=== PATIENT | female | born 1980 | race Caucasian/White ===

== ENCOUNTER → 2019-04-04 | Outpatient (CLI) | payer BC ==
--- NOTE | 2019-04-04 09:14 | US ---
EXAMINATION TYPE: US abdomen complete DATE OF EXAM: 04/04/2019 COMPARISON: CT 2009 CLINICAL HISTORY: Abnormal Liver Function Studies R94.5. EXAM MEASUREMENTS: Liver Length: 18.6 cm Gallbladder Wall: 0.1 cm CBD: 0.3 cm Spleen: 9.9 cm Right Kidney: 13.0 x 6.7 x 6.2 cm Left Kidney: 11.1 x 5.3 x 5.1 cm Pancreas: Obscured by bowel gas Liver: Coarsened and hyperechoic heterogenous echotexture of the hepatic parenchyma, which most commo nly corresponds to hepatic steatosis and limits evaluation for underlying hepatic masses Gallbladder: No stones seen Evidence for sonographic Mariscal's sign: No CBD: wnl Spleen: wnl Right Kidney: No hydronephrosis or masses seen Left Kidney: No hydronephrosis or masses seen Upper IVC: wnl Abd Aorta: wnl The intrahepatic portion of the IVC and proximal abdominal aorta are within normal limits. There is no evidence of cholelithiasis. Common bile duct is unremarkable. The pancreas is obscured by overly ing bowel gas. The spleen is unremarkable. Kidneys are symmetric and free of hydronephrosis. No re nal lesions are seen. IMPRESSION: 1. Heterogenous hyperechoic hepatic echotexture relating to mild to moderate hepatic steatosis sonogr aphically. 2. Obscuration of the pancreas by overlying bowel gas.
== END | disposition home or self-care (01) ==
LOC: RADUSWWP 07:53
PROVIDERS: ATTEND Family Medicine
DX: R93.2 Abnormal findings on diagnostic imaging of liver and biliary tract (principal); E78.2 Mixed hyperlipidemia
CPT/HCPCS: 76700

== ENCOUNTER 2021-05-15 05:34 | Observation (INO) | payer BC ==
[2021-05-15] MEDS ORDERED: SODIUM CHLORIDE 0.9% 1,000 ML IV STA (05:57)
[2021-05-15] MEDS ORDERED: KETOROLAC 15 MG/ML 1 ML VIAL IVP STA (05:57)
[2021-05-15] MEDS ORDERED: MORPHINE SULFATE 4 MG/ML SYRINGE IV STA (05:57)
--- NOTE | 2021-05-15 05:57 | ED ---
Abdominal Pain HPI <Ja Pearl - Last Filed: 05/15/21 08:19> - General Source: patient, RN notes reviewed, old records reviewed Mode of arrival: ambulatory Limitations: no limitations - History of Present Illness MD Complaint: abdominal pain, flank pain -: week(s) Location: RUQ, R flank Radiation: epigastric Severity: moderate Severity scale (1-10): 7 Quality: stabbing Consistency: constant Improves With: nothing Worsens With: nothing Associated Symptoms: nausea, vomiting <Ja Flores - Last Filed: 05/16/21 06:29> - General Chief Complaint: Abdominal Pain Stated Complaint: R Flank Pain Time Seen by Provider: 05/15/21 05:46 - History of Present Illness Initial Comments: This is a 32-year-old female DF for evaluation of abdominal pain epigastric abdominal pain right upper quadrant bowel pain abdominal pain radiates to right upper shoulder back, right-sided abdominal pain with nausea and vomiting. Pain is persistent throughout ER stay. Patient sent her gallbladder history she is concern for gallbladder. She has had this pain before but state is worsening has been in the past. No fevers mild nausea no vomiting. (Ja Flores) - Related Data Home Medications Medication Instructions Recorded Confirmed Insulin Degludec [Tresiba] 10 units SQ HS 04/11/19 05/15/21 gemfibroziL [Lopid] 600 mg PO BID 04/11/19 05/15/21 glyBURIDE [Diabeta] 10 mg PO AC-BRKFST 04/11/19 05/15/21 metFORMIN HCL [metFORMIN HCL ER] 1,000 mg PO HS 05/15/21 05/15/21 Allergies Allergy/AdvReac Type Severity Reaction Status Date / Time No Known Allergies Allergy Verified 05/15/21 09:27 Review of Systems ROS Other: All systems not noted in ROS Statement are negative. <Ja Pearl - Last Filed: 05/15/21 08:19> ROS Other: All systems not noted in ROS Statement are negative. <Ja Flores - Last Filed: 05/16/21 06:29> ROS Statement: Those systems with pertinent positive or pertinent negative responses have been documented in the HPI. Past Medical History Past Medical History: No Reported History History of Any Multi-Drug Resistant Organisms: None Reported Past Surgical History: Tubal Ligation Past Anesthesia/Blood Transfusion Reactions: No Reported Reaction Past Psychological History: No Psychological Hx Reported Smoking Status: Current every day smoker Past Alcohol Use History: Rare Past Drug Use History: None Reported <Ja Flores - Last Filed: 05/16/21 06:29> General Exam Limitations: no limitations General appearance: alert, in no apparent distress Head exam: Present: atraumatic, normocephalic, normal inspection Eye exam: Present: normal appearance, PERRL, EOMI. Absent: scleral icterus, conjunctival injection, periorbital swelling ENT exam: Present: normal exam, mucous membranes moist Neck exam: Present: normal inspection. Absent: tenderness, meningismus, lymphadenopathy Respiratory exam: Present: normal lung sounds bilaterally. Absent: respiratory distress, wheezes, rales, rhonchi, stridor Cardiovascular Exam: Present: regular rate, normal rhythm, tachycardia, normal heart sounds. Absent: systolic murmur, diastolic murmur, rubs, gallop, clicks GI/Abdominal exam: Present: soft, normal bowel sounds. Absent: distended, tenderness, guarding, rebound, rigid Extremities exam: Present: normal inspection, full ROM, normal capillary refill. Absent: tenderness, pedal edema, joint swelling, calf tenderness Back exam: Present: normal inspection Neurological exam: Present: alert, oriented X3, CN II-XII intact Psychiatric exam: Present: normal affect, normal mood Skin exam: Present: warm, dry, intact, normal color. Absent: rash <Ja Flores - Last Filed: 05/16/21 06:29> Course <Ja Flores - Last Filed: 05/16/21 06:29> Vital Signs 05/15/21 05/15/21 05/15/21 05:45 07:24 09:20 Temperature 97.9 F 97.9 F Pulse Rate 109 H 92 Pulse Rate [ 81 Pulse Oximetery ] Respiratory 19 18 18 Rate Blood Pressure 134/85 114/85 Blood Pressure 125/78 [Right Arm] O2 Sat by Pulse 98 97 96 Oximetry - Reevaluation(s) Reevaluation #1: Medical record is reviewed Patient symptoms are improved here in the ER Patient is in no acute distress Patient informed results and questions answered (Ja Flores) Medical Decision Making - Lab Data Result diagrams: 05/15/21 06:06 05/15/21 06:06 <Ja Pearl - Last Filed: 05/15/21 08:19> - Lab Data Result diagrams: 05/15/21 06:06 05/15/21 06:06 - Radiology Data Radiology results: report reviewed (CT abdomen and pelvis is negative for significant acute disease possible kidney stone), image reviewed <Ja Flores - Last Filed: 05/16/21 06:29> - Medical Decision Making Ultrasound did not show any gallstones or fluid around the gallbladder. However on reexamination of the patient patient was strapping machine tender in the right upper quadrant she stated the pain radiated to her back and up into her shoulder. Patient still was uncomfortable at this time. I spoke with the [facility] hospitalist and admitted the patient and I consulted Dr. granger (Ja Pearl) - Lab Data Lab Results 05/15/21 05/15/21 05/15/21 Range/Units 05:50 06:06 06:06 WBC 15.2 H (3.8-10.6) k/uL RBC 4.81 (3.80-5.40) m/uL Hgb 13.4 (11.4-16.0) gm/dL Hct 39.6 (34.0-46.0) % MCV 82.5 (80.0-100.0) fL MCH 27.8 (25.0-35.0) pg MCHC 33.7 (31.0-37.0) g/dL RDW 13.7 (11.5-15.5) % Plt Count 317 (150-450) k/uL MPV 7.2 Neutrophils % 72 % Lymphocytes % 20 % Monocytes % 4 % Eosinophils % 2 % Basophils % 1 % Neutrophils # 11.0 H (1.3-7.7) k/uL Lymphocytes # 3.1 (1.0-4.8) k/uL Monocytes # 0.7 (0-1.0) k/uL Eosinophils # 0.3 (0-0.7) k/uL Basophils # 0.1 (0-0.2) k/uL Sodium 136 L (137-145) mmol/L Potassium 4.4 (3.5-5.1) mmol/L Chloride 105 (98-107) mmol/L Carbon Dioxide 22 (22-30) mmol/L Anion Gap 9 mmol/L BUN 7 (7-17) mg/dL Creatinine 0.44 L (0.52-1.04) mg/dL Est GFR (CKD-EPI)AfAm >90 (>60 ml/min/1.73 sqM) Est GFR (CKD-EPI)NonAf >90 (>60 ml/min/1.73 sqM) Glucose 280 H (74-99) mg/dL POC Glucose (mg/dL) (75-99) mg/dL POC Glu Microfilmer ID Calcium 9.8 (8.4-10.2) mg/dL Total Bilirubin 0.4 (0.2-1.3) mg/dL AST 77 H (14-36) U/L ALT 68 H (4-34) U/L Alkaline Phosphatase 101 (38-126) U/L Total Protein 7.5 (6.3-8.2) g/dL Albumin 4.6 (3.5-5.0) g/dL Amylase 67 (30-110) U/L Lipase 248 (23-300) U/L Urine Color Light Yellow Urine Appearance Clear (Clear) Urine pH 6.5 (5.0-8.0) Ur Specific [place] 1.005 (1.001-1.035) Urine Protein Negative (Negative) Urine Glucose (UA) 4+ H (Negative) Urine Ketones Negative (Negative) Urine Blood Negative (Negative) Urine Nitrite Negative (Negative) Urine Bilirubin Negative (Negative) Urine Urobilinogen <2.0 (<2.0) mg/dL Ur Leukocyte Esterase Small H (Negative) Urine RBC 2 (0-5) /hpf Urine WBC 5 (0-5) /hpf Ur Squamous Epith Cells 5 H (0-4) /hpf Urine Bacteria Rare H (None) /hpf 05/15/21 Range/Units 08:07 WBC (3.8-10.6) k/uL RBC (3.80-5.40) m/uL Hgb (11.4-16.0) gm/dL Hct (34.0-46.0) % MCV (80.0-100.0) fL MCH (25.0-35.0) pg MCHC (31.0-37.0) g/dL RDW (11.5-15.5) % Plt Count (150-450) k/uL MPV Neutrophils % % Lymphocytes % % Monocytes % % Eosinophils % % Basophils % % Neutrophils # (1.3-7.7) k/uL Lymphocytes # (1.0-4.8) k/uL Monocytes # (0-1.0) k/uL Eosinophils # (0-0.7) k/uL Basophils # (0-0.2) k/uL Sodium (137-145) mmol/L Potassium (3.5-5.1) mmol/L Chloride (98-107) mmol/L Carbon Dioxide (22-30) mmol/L Anion Gap mmol/L BUN (7-17) mg/dL Creatinine (0.52-1.04) mg/dL Est GFR (CKD-EPI)AfAm (>60 ml/min/1.73 sqM) Est GFR (CKD-EPI)NonAf (>60 ml/min/1.73 sqM) Glucose (74-99) mg/dL POC Glucose (mg/dL) 211 H (75-99) mg/dL POC Glu Microfilmer ID Lisa Donahue Calcium (8.4-10.2) mg/dL Total Bilirubin (0.2-1.3) mg/dL AST (14-36) U/L ALT (4-34) U/L Alkaline Phosphatase (38-126) U/L Total Protein (6.3-8.2) g/dL Albumin (3.5-5.0) g/dL Amylase (30-110) U/L Lipase (23-300) U/L Urine Color Urine Appearance (Clear) Urine pH (5.0-8.0) Ur Specific [place] (1.001-1.035) Urine Protein (Negative) Urine Glucose (UA) (Negative) Urine Ketones (Negative) Urine Blood (Negative) Urine Nitrite (Negative) Urine Bilirubin (Negative) Urine Urobilinogen (<2.0) mg/dL Ur Leukocyte Esterase (Negative) Urine RBC (0-5) /hpf Urine WBC (0-5) /hpf Ur Squamous Epith Cells (0-4) /hpf Urine Bacteria (None) /hpf Disposition Time of Disposition: 08:21 <Ja Pearl - Last Filed: 05/15/21 08:19> Is patient prescribed a controlled substance at d/c from ED?: No <Ja Flores - Last Filed: 05/16/21 06:29> Clinical Impression: Right upper quadrant abdominal pain, Abdominal pain Disposition: ADMITTED IP TO THIS HOSP Condition: Good
[2021-05-15 06:26] LABS: Basophils # (A) 0.1 k/uL (0-0.2); Basophils % (A) 1 %; Eosinophils # (A) 0.3 k/uL (0-0.7); Eosinophils % (A) 2 %; HCT 39.6 % (34.0-46.0); HGB 13.4 gm/dL (11.4-16.0); Lymphocytes # (A) 3.1 k/uL (1.0-4.8); Lymphocytes % (A) 20 %; MCH 27.8 pg (25.0-35.0); MCHC 33.7 g/dL (31.0-37.0); MCV 82.5 fL (80.0-100.0); Mean Platelet Volume 7.2; Monocytes # (A) 0.7 k/uL (0-1.0); Monocytes % (A) 4 %; Neutrophils % (A) 72 %; Platelet Count 317 k/uL (150-450); RBC 4.81 m/uL (3.80-5.40); RDW 13.7 % (11.5-15.5); WBC 15.2 k/uL (3.8-10.6)
[2021-05-15 06:29] LABS: Appearance,Urine Clear (Clear); Bacteria,Urine Rare /hpf; Bilirubin,Urine Negative (Negative); Blood,Urine Negative (Negative); Color,Urine Light Yellow; Glucose,Urine (UA) 4+ (Negative); Ketones,Urine Negative (Negative); Leukocyte Esterase,Urine Small (Negative); Nitrite,Urine Negative (Negative); PH, Urine 6.5 (5.0-8.0); Protein,Urine Negative (Negative); RBC,Urine 2 /hpf (0-5); Specific Gravity,Urine 1.005 (1.001-1.035); Squamous Epithelial Cell,Urine 5 /hpf (0-4); Urobilinogen,Urine <2.0 mg/dL (<2.0); WBC,Urine 5 /hpf (0-5)
[2021-05-15 06:38] LABS: ALT 68 U/L (4-34); AST 77 U/L (14-36); African American GFR (CKD) >90 (>60 ml/min/1.73 sqM); Albumin 4.6 g/dL (3.5-5.0); Alkaline Phosphatase 101 U/L (38-126); Amylase 67 U/L (30-110); Anion Gap 9 mmol/L; Blood Urea Nitrogen 7 mg/dL (7-17); Calcium 9.8 mg/dL (8.4-10.2); Carbon Dioxide 22 mmol/L (22-30); Chloride 105 mmol/L (98-107); Glucose 280 mg/dL (74-99); Lipase 248 U/L (23-300); Non-African American GFR(CKD) >90 (>60 ml/min/1.73 sqM); Potassium 4.4 mmol/L (3.5-5.1); Sodium 136 mmol/L (137-145); Total Bilirubin 0.4 mg/dL (0.2-1.3); Total Protein 7.5 g/dL (6.3-8.2)
--- NOTE | 2021-05-15 06:48 | CT ---
EXAMINATION TYPE: CT abdomen pelvis wo con DATE OF EXAM: 05/15/2021 COMPARISON: None HISTORY: Rt flank pain, RUQ pain CT DLP: 751.7 mGycm Automated exposure control for dose reduction was used. Images obtained from the diaphragm to the floor the pelvis without contrast. Lung bases show mild subsegmental atelectasis in the lingula left upper lobe. Heart size is normal. T here is no pericardial effusion. There is no pleural effusion. Liver spleen stomach pancreas gallbladder appear intact. The bile ducts are not dilated. There is no adrenal mass. Kidneys have normal size. There is right side mild hydronephrosis. There ar e small calculi in the lower pole right kidney measuring up to 3 mm. There is slight fullness of the proximal right ureter. I see no ureteral calculus. Bladder distends smoothly. Uterus is tilted to the right side. There is no inguinal hernia. There is no free fluid in the pelvis. Appendix is not seen. There is no sign of thickened appendix. The lumbar vertebra have normal alignment. There is no compression fracture. Posterior elements are i ntact. Facet joints are intact. The bony pelvis is intact. Hip joints appear normal. There is no hip dysplasia. IMPRESSION: Multiple small right-sided renal calculi. Right kidney larger than the left. There is some fullness o f the right renal pelvis and proximal right ureter but no calculus seen. This could relate to nonopaq ue stone or recently passed stone. Appendix not seen. Mild atelectasis and infiltrate in the lingula left upper lobe.
[2021-05-15] MEDS ORDERED: HYDROmorphone 1 MG/ML 1 ML SYRINGE IVP STA (06:53)
--- NOTE | 2021-05-15 07:48 | US ---
EXAMINATION TYPE: US gallbladder DATE OF EXAM: 05/15/2021 COMPARISON: 04/04/2019 CLINICAL HISTORY: pain. Right flank pain EXAM MEASUREMENTS: Liver Length: 20.3 cm Gallbladder Wall: 0.2 cm CBD: 0.4 cm Right Kidney: 13.6 x 5.4 x 6.4 cm *technical limitations due to patient's body habitus and large amount of overlying bowel content Pancreas: Tail obscured by overlying bowel gas Liver: enlarged, attenuating, unable to penetrate Gallbladder: no evidence of stones Evidence for sonographic Mariscal's sign: no CBD: wnl Right Kidney: enlarged with mild dilated collecting systemm Suggestive of mild pelvicaliectasis. No right renal calculi are seen. IMPRESSION: 1. The study is limited due to patient's large body habitus and overlying bowel gas. 2. Hepatomegaly and hepatic steatosis. The liver is not well visualized due to difficulty in penetrat ion. 3. No gallstones, sludge, or pericholecystic fluid. No gallbladder wall thickening. 4. The right kidney is enlarged. Mild pelvicaliectasis.
[2021-05-15] MEDS ORDERED: ONDANSETRON 4 MG/2 ML VIAL IVP STA (08:02)
[2021-05-15 08:09] LABS: Glucose,Whole Blood 211 mg/dL (75-99)
[2021-05-15] MEDS ORDERED: SODIUM CHLORIDE 0.9% 1,000 ML IV ONE (08:22)
[2021-05-15] MEDS: KETOROLAC 15 MG/ML 1 ML VIAL IVP SCH ×3 (12:06→23:57)
[2021-05-15 12:48] LABS: Glucose,Whole Blood 135 mg/dL (75-99)
[2021-05-15] MEDS: INSULIN ASPART (NovoLOG) 100 UNIT/ML VIAL SQ SCH ×3 (13:01→20:34)
--- NOTE | 2021-05-15 16:42 | P.GSCN ---
History of Present Illness Consult date: 05/15/21 Reason for Consult: Right-sided abdominal pain History of present illness: 40-year-old female came to the hospital complaining of pain. Pain was present last Wednesday but slowly increased in severity. She points to the lateral aspect of the right costal region. Says the pain does seem to radiate from the front to the back and also to the shoulder. Minimal nausea, no vomiting. Normal appetite. Normal bowel habits. Denies fevers or chills. No urinary symptoms. She had a CAT scan which showed mild enlargement of the right kidney along with mild proximal ureteral dilation without calcified stones in the ureter however patient does have stones in the right kidney. Gallbladder itself on that study looks fairly normal. Her liver is somewhat enlarged. Her transaminases are somewhat elevated. Ultrasound of the gallbladder appeared normal. Review of Systems The patient denies any acute changes in vision or hearing, no dysphagia or odynophagia, no chest pain or shortness of breath, no dysuria or hematuria, no headache, no runny nose, no rectal bleeding or melena, no unexplained weight loss Past Medical History Past Medical History: Diabetes Mellitus, Hyperlipidemia History of Any Multi-Drug Resistant Organisms: None Reported Past Surgical History: Tubal Ligation Past Anesthesia/Blood Transfusion Reactions: No Reported Reaction Past Psychological History: No Psychological Hx Reported Smoking Status: Current every day smoker Past Alcohol Use History: Rare Past Drug Use History: None Reported - Past Family History Mother Family Medical History: Diabetes Mellitus, Hyperlipidemia Medications and Allergies Home Medications Medication Instructions Recorded Confirmed Type Insulin Degludec [Tresiba] 10 units SQ HS 04/11/19 05/15/21 History gemfibroziL [Lopid] 600 mg PO BID 04/11/19 05/15/21 History glyBURIDE [Diabeta] 10 mg PO AC-BRKFST 04/11/19 05/15/21 History metFORMIN HCL [metFORMIN HCL ER] 1,000 mg PO HS 05/15/21 05/15/21 History Allergies Allergy/AdvReac Type Severity Reaction Status Date / Time No Known Allergies Allergy Verified 05/15/21 09:27 Surgical - Exam Vital Signs Temp Pulse Resp BP Pulse Ox 97.9 F 109 H 19 134/85 98 05/15/21 05:45 05/15/21 05:45 05/15/21 05:45 05/15/21 05:45 05/15/21 05:45 Physical exam: General: Well-developed, well-nourished HEENT: Normocephalic, sclerae nonicteric Abdomen: Right lateral upper quadrant tenderness, right CVA tenderness, nondistended Extremities: No edema Neuro: Alert and oriented Results - Labs 05/15/21 06:06 05/15/21 06:06 Abnormal Lab Results - Last 24 Hours (Table) 05/15/21 05/15/21 05/15/21 Range/Units 05:50 06:06 06:06 WBC 15.2 H (3.8-10.6) k/uL Neutrophils # 11.0 H (1.3-7.7) k/uL Sodium 136 L (137-145) mmol/L Creatinine 0.44 L (0.52-1.04) mg/dL Glucose 280 H (74-99) mg/dL POC Glucose (mg/dL) (75-99) mg/dL AST 77 H (14-36) U/L ALT 68 H (4-34) U/L Urine Glucose (UA) 4+ H (Negative) Ur Leukocyte Esterase Small H (Negative) Ur Squamous Epith Cells 5 H (0-4) /hpf Urine Bacteria Rare H (None) /hpf 05/15/21 05/15/21 Range/Units 08:07 12:46 WBC (3.8-10.6) k/uL Neutrophils # (1.3-7.7) k/uL Sodium (137-145) mmol/L Creatinine (0.52-1.04) mg/dL Glucose (74-99) mg/dL POC Glucose (mg/dL) 211 H 135 H (75-99) mg/dL AST (14-36) U/L ALT (4-34) U/L Urine Glucose (UA) (Negative) Ur Leukocyte Esterase (Negative) Ur Squamous Epith Cells (0-4) /hpf Urine Bacteria (None) /hpf Diabetes panel 05/15/21 Range/Units 06:06 Sodium 136 L (137-145) mmol/L Potassium 4.4 (3.5-5.1) mmol/L Chloride 105 (98-107) mmol/L Carbon Dioxide 22 (22-30) mmol/L BUN 7 (7-17) mg/dL Creatinine 0.44 L (0.52-1.04) mg/dL Glucose 280 H (74-99) mg/dL Calcium 9.8 (8.4-10.2) mg/dL AST 77 H (14-36) U/L ALT 68 H (4-34) U/L Alkaline Phosphatase 101 (38-126) U/L Total Protein 7.5 (6.3-8.2) g/dL Albumin 4.6 (3.5-5.0) g/dL Calcium panel 05/15/21 Range/Units 06:06 Calcium 9.8 (8.4-10.2) mg/dL Albumin 4.6 (3.5-5.0) g/dL Pituitary panel 05/15/21 Range/Units 06:06 Sodium 136 L (137-145) mmol/L Potassium 4.4 (3.5-5.1) mmol/L Chloride 105 (98-107) mmol/L Carbon Dioxide 22 (22-30) mmol/L BUN 7 (7-17) mg/dL Creatinine 0.44 L (0.52-1.04) mg/dL Glucose 280 H (74-99) mg/dL Calcium 9.8 (8.4-10.2) mg/dL Adrenal panel 05/15/21 Range/Units 06:06 Sodium 136 L (137-145) mmol/L Potassium 4.4 (3.5-5.1) mmol/L Chloride 105 (98-107) mmol/L Carbon Dioxide 22 (22-30) mmol/L BUN 7 (7-17) mg/dL Creatinine 0.44 L (0.52-1.04) mg/dL Glucose 280 H (74-99) mg/dL Calcium 9.8 (8.4-10.2) mg/dL Total Bilirubin 0.4 (0.2-1.3) mg/dL AST 77 H (14-36) U/L ALT 68 H (4-34) U/L Alkaline Phosphatase 101 (38-126) U/L Total Protein 7.5 (6.3-8.2) g/dL Albumin 4.6 (3.5-5.0) g/dL Assessment and Plan (1) Right upper quadrant abdominal pain Narrative/Plan: 40-year-old female with right-sided abdominal pain. Will order HIDA scan with CCK. Agree with urology evaluation. Will follow. Current Visit: Yes Status: Acute Code(s): R10.11 - RIGHT UPPER QUADRANT PAIN SNOMED Code(s): 705840182
[2021-05-15 17:08] LABS: Glucose,Whole Blood 123 mg/dL (75-99)
[2021-05-15 20:18] LABS: Glucose,Whole Blood 240 mg/dL (75-99)
[2021-05-15 20:21] LABS: Glucose,Whole Blood 308 mg/dL (75-99)
[2021-05-15] MEDS ORDERED: INSULIN DETEMIR (LEVEMIR) 100 UNIT/ML SYR SQ SCH (21:00)
--- NOTE | 2021-05-15 22:11 | P.HPIM ---
History of Present Illness H&P Date: 05/15/21 Chief Complaint: Abdominal pain Patient is a 40-year-old female with a known history of diabetes type insulin- dependent, hyperlipidemia and currently everyday smoker presents to ER with the complaints of abdominal pain. Patient states that she has been having sharp pain below the right rib cage and in the flank region. Pain radiating to the upper back. Patient has been having symptoms for the past 3 to 5 days. Yesterday when she was at work she developed severe pain 10 out of 10 which made her to come to ER. Denies any complaints of fever or chills. No chest pain or shortness of. No nausea vomiting or abdominal pain or diarrhea. Denied any recent illnesses. Patient states that about 20 years ago she passed a stone but never was seen by urology. CT of the abdomen pelvis showed multiple small right-sided renal calculi. Right kidney larger than left. There is some fullness of the right renal pelvis and proximal right ureter but no calculus seen. Ultrasound gallbladder showed large body habitus and overlying bowel gas. Hepatomegaly and hepatic steatosis. No gallstones sludge or pericholecystic fluid. No gallbladder wall thickening. Right kidney is enlarged. Laboratory data showed WBC 15.2 hemoglobin 13.4 and platelets 317 sodium 136 potassium 4.4 BUN 7 creatinine 0.44 blood sugar is 280 AST 77 ALT 68 and alk phos 101 and total bilirubin level is 0.4 urinalysis is negative for infection. Review of Systems Constitutional: Patient denies any fever or chills . No generalized weakness or weight loss. Abdomen:Patient does have right flank pain associate with nausea. No vomiting. No diarrhea. Cardiovascular: Patient denies any chest pain or short of breath no palpitations. Respiratory: patient denied any cough or sputum production. No shortness of breath Neurologic: Patient denied any numbness or tingling headache. Musculoskeletal: Patient denies any complaints of joint swelling or deformity. Skin: Negative Psychiatric: Negative Endocrine: No heat or cold intolerance. No recent weight gain. Genitourinary: Denied dysuria or hematuria.. All other 14 point ROS negative except the above Past Medical History Past Medical History: Diabetes Mellitus, Hyperlipidemia History of Any Multi-Drug Resistant Organisms: None Reported Past Surgical History: Tubal Ligation Past Anesthesia/Blood Transfusion Reactions: No Reported Reaction Past Psychological History: No Psychological Hx Reported Smoking Status: Current every day smoker Past Alcohol Use History: Rare Past Drug Use History: None Reported - Past Family History Mother Family Medical History: Diabetes Mellitus, Hyperlipidemia Medications and Allergies Home Medications Medication Instructions Recorded Confirmed Type Insulin Degludec [Tresiba] 10 units SQ HS 04/11/19 05/15/21 History gemfibroziL [Lopid] 600 mg PO BID 04/11/19 05/15/21 History glyBURIDE [Diabeta] 10 mg PO AC-BRKFST 04/11/19 05/15/21 History metFORMIN HCL [metFORMIN HCL ER] 1,000 mg PO HS 05/15/21 05/15/21 History Allergies Allergy/AdvReac Type Severity Reaction Status Date / Time No Known Allergies Allergy Verified 05/15/21 09:27 Physical Exam Vitals: Vital Signs Temp Pulse Pulse Resp BP BP Pulse Ox 05/15/21 09:20 97.9 F 81 18 125/78 96 05/15/21 07:24 92 18 114/85 97 05/15/21 05:45 97.9 F 109 H 19 134/85 98 Intake and Output 05/14/21 05/15/21 05/15/21 22:59 06:59 14:59 Other: Weight 90.718 kg 87.4 kg PHYSICAL EXAMINATION: Patient is lying in the bed comfortably, no acute distress, awake alert and oriented.. HEENT: Normocephalic. Neck is supple. Pupils reactive. Nostrils clear. Oral cavity is moist. Ears reveal no drainage. Neck reveals no JVD, carotid bruits, or thyromegaly. CHEST EXAMINATION: Trachea is central. Symmetrical expansion. Lung hurd clear to auscultation and percussion. CARDIAC: Normal S1, S2 with no gallops. No murmurs ABDOMEN: Soft. Bowel sounds normal. No organomegaly. No abdominal bruits. mild rt. flank tenderness Extremities: reveal no edema. No clubbing or cyanosis Neurologically awake, alert, oriented x3 with well-coordinated movements. No focal deficits noted Skin: No rash or skin lesions. Psychiatric: Coperative. Nonsuicidal Musculoskeletal: No joint swelling or deformity. Normal range of motion. Results CBC & Chem 7: 05/15/21 06:06 05/15/21 06:06 Labs: Abnormal Lab Results - Last 24 Hours (Table) 05/15/21 05/15/2121 Range/Units 05:50 06:06 06:06 WBC 15.2 H (3.8-10.6) k/uL Neutrophils # 11.0 H (1.3-7.7) k/uL Sodium 136 L (137-145) mmol/L Creatinine 0.44 L (0.52-1.04) mg/dL Glucose 280 H (74-99) mg/dL POC Glucose (mg/dL) (75-99) mg/dL AST 77 H (14-36) U/L ALT 68 H (4-34) U/L Urine Glucose (UA) 4+ H (Negative) Ur Leukocyte Esterase Small H (Negative) Ur Squamous Epith Cells 5 H (0-4) /hpf Urine Bacteria Rare H (None) /hpf 05/15/21 Range/Units 08:07 WBC (3.8-10.6) k/uL Neutrophils # (1.3-7.7) k/uL Sodium (137-145) mmol/L Creatinine (0.52-1.04) mg/dL Glucose (74-99) mg/dL POC Glucose (mg/dL) 211 H (75-99) mg/dL AST (14-36) U/L ALT (4-34) U/L Urine Glucose (UA) (Negative) Ur Leukocyte Esterase (Negative) Ur Squamous Epith Cells (0-4) /hpf Urine Bacteria (None) /hpf Thrombosis Risk Factor Assmnt - DVT/VTE Prophylaxis DVT/VTE Prophylaxis: Pharmacologic Prophylaxis ordered - Choose All That Apply Any of the Below Risk Factors Present?: Yes Each Factor Represents 1 point: Obesity (BMI >25) Other Risk Factors: No Thrombosis Risk Factor Assessment Total Risk Factor Score: 1 Thrombosis Risk Factor Assessment Level: Low Risk Assessment and Plan Assessment: Right flank abdominal pain likely due to renal stones with passage of stone. Rule out acute cholecystitis. Hyperlipidemia hyperglycemia with uncontrolled diabetes type 2 insulin-dependent DVT prophylaxis with heparin subcu Plan: patient will be continued IV hydration with normal saline and continue with pain management with Toradol and morphine. Urology and general surgery was consulted. Continue with insulin sliding scale and follow-up A1c level. Continue to follow closely. Time with Patient: Greater than 30
[2021-05-15] MEDS ORDERED: SODIUM CHLORIDE 0.9% 1,000 ML IV SCH (22:15)
[2021-05-16 06:30] LABS: Glucose,Whole Blood 186 mg/dL (75-99)
[2021-05-16] MEDS: KETOROLAC 15 MG/ML 1 ML VIAL IVP SCH ×2 (06:39→11:29)
[2021-05-16 06:49] LABS: Basophils # (A) 0.1 k/uL (0-0.2); Basophils % (A) 1 %; Eosinophils # (A) 0.2 k/uL (0-0.7); Eosinophils % (A) 2 %; HCT 34.7 % (34.0-46.0); HGB 11.7 gm/dL (11.4-16.0); Lymphocytes # (A) 2.2 k/uL (1.0-4.8); Lymphocytes % (A) 21 %; MCH 27.9 pg (25.0-35.0); MCHC 33.6 g/dL (31.0-37.0); Mean Platelet Volume 7.3; Monocytes # (A) 0.4 k/uL (0-1.0); Monocytes % (A) 4 %; Neutrophils # (A) 7.6 k/uL (1.3-7.7); Neutrophils % (A) 72 %; Platelet Count 232 k/uL (150-450); RBC 4.18 m/uL (3.80-5.40); RDW 13.9 % (11.5-15.5); WBC 10.5 k/uL (3.8-10.6)
[2021-05-16 07:05] LABS: ALT 62 U/L (4-34); AST 65 U/L (14-36); African American GFR (CKD) >90 (>60 ml/min/1.73 sqM); Albumin 3.6 g/dL (3.5-5.0); Alkaline Phosphatase 79 U/L (38-126); Anion Gap 7 mmol/L; Blood Urea Nitrogen 11 mg/dL (7-17); Calcium 9.1 mg/dL (8.4-10.2); Carbon Dioxide 24 mmol/L (22-30); Chloride 107 mmol/L (98-107); Glucose 183 mg/dL (74-99); Non-African American GFR(CKD) >90 (>60 ml/min/1.73 sqM); Potassium 4.3 mmol/L (3.5-5.1); Sodium 138 mmol/L (137-145); Total Bilirubin 0.2 mg/dL (0.2-1.3); Total Protein 6.2 g/dL (6.3-8.2)
[2021-05-16] MEDS: INSULIN ASPART (NovoLOG) 100 UNIT/ML VIAL SQ SCH ×2 (08:41→12:35)
[2021-05-16] MEDS ORDERED: FENOFIBRATE 160 MG TAB PO SCH (09:00)
[2021-05-16 09:04] VITALS: RESP 18
--- NOTE | 2021-05-16 11:46 | NM ---
EXAMINATION TYPE: NM hepatobiliary w CCK DATE OF EXAM: 05/16/2021 COMPARISON: CT and ultrasound from yesterday HISTORY: Right-sided pain. Epigastric pain with heartburn-like symptoms. TECHNIQUE: After the intravenous administration of 5.1 mCi Tc 99m Mebrofenin hepatobiliary scintigrap hy is performed. Immediate images post injection. FINDINGS: There is satisfactory initial accumulation of tracer by the liver. The gallbladder is visualized wit hin 10 minutes. The small bowel activity is noted within 55 minutes. At one hour CCK was administer ed, patient was injected with 1.75 mcg of Kinevac, and gallbladder ejection fraction is calculated at 70 %, in the normal range. Therefore there is no scintigraphic evidence of cystic or common bile du ct obstruction to suggest acute cholecystitis or gallbladder dyskinesia. IMPRESSION: Exam is within normal limits.
[2021-05-16 12:06] LABS: Glucose,Whole Blood 141 mg/dL (75-99)
--- NOTE | 2021-05-16 12:20 | P.PN ---
<Bhumika Ellison - Last Filed: 05/16/21 12:15> Subjective Progress Note Date: 05/16/21 CHIEF COMPLAINT: Abdominal pain HISTORY OF PRESENT ILLNESS: Surgical service is following in regards to patient's right upper quadrant abdominal pain. Patient still reporting right upper quadrant abdominal pain that radiates into the back and up into the shoulder. Her HIDA scan is normal. EF 70%. Patient denies any nausea or vom iting. White count has decreased from 15.2-10.5 afebrile. PHYSICAL EXAM: VITAL SIGNS: Reviewed. GENERAL: Well-developed in no acute distress. HEENT: No sclera icterus. Extraocular movements grossly intact. Moist buccal mucosa. Head is atraumatic, normocephalic. ABDOMEN: Soft. Nondistended. Mild tenderness with palpation of the right upper quadrant NEUROLOGIC: Alert and oriented. Cranial nerves II through XII grossly intact. ASSESSMENT: 1. Right upper quadrant abdominal pain with normal HIDA scan. Symptoms may be due to kidney stones. Agree with urology evaluation PLAN: -No surgical intervention planned -Start patient on regular diet -Await urology evaluation Physician Welfare Administrator note has been reviewed by physician. Signing provider agrees with the documented findings, assessment, and plan of care. Objective - Vital Signs Vital signs: Vital Signs Temp 98.2 F 05/16/21 08:30 Pulse 92 05/16/21 08:30 Resp 18 05/16/21 08:30 BP 123/85 05/16/21 08:30 Pulse Ox 95 05/16/21 08:30 Intake & Output 05/15/21 05/16/21 05/16/21 18:59 06:59 18:59 Weight 87.4 kg Other: Voiding Method Toilet Toilet # Voids 2 1 2 - Labs CBC & Chem 7: 05/16/21 06:06 05/16/21 06:06 Labs: Abnormal Lab Results - Last 24 Hours (Table) 05/15/21 05/15/21 05/15/21 Range/Units 12:46 17:06 20:08 Creatinine (0.52-1.04) mg/dL Glucose (74-99) mg/dL POC Glucose (mg/dL) 135 H 123 H 240 H (75-99) mg/dL AST (14-36) U/L ALT (4-34) U/L Total Protein (6.3-8.2) g/dL 05/15/21 05/16/21 05/16/21 Range/Units 20:19 06:06 06:29 Creatinine 0.51 L (0.52-1.04) mg/dL Glucose 183 H (74-99) mg/dL POC Glucose (mg/dL) 308 H 186 H (75-99) mg/dL AST 65 H (14-36) U/L ALT 62 H (4-34) U/L Total Protein 6.2 L (6.3-8.2) g/dL 05/16/21 Range/Units 12:05 Creatinine (0.52-1.04) mg/dL Glucose (74-99) mg/dL POC Glucose (mg/dL) 141 H (75-99) mg/dL AST (14-36) U/L ALT (4-34) U/L Total Protein (6.3-8.2) g/dL <Corey Mckeon - Last Filed: 05/16/21 12:21> Subjective As above. Patient says her pain is somewhat improved. Her HIDA scan is normal. Despite presentation and symptoms studies or suggesting a urologic source of pain. Await urology consult. No general surgical procedures planned. Objective - Vital Signs Vital signs: Vital Signs Temp 98.2 F 05/16/21 08:30 Pulse 92 05/16/21 08:30 Resp 18 05/16/21 08:30 BP 123/85 05/16/21 08:30 Pulse Ox 95 05/16/21 08:30 Intake & Output 05/15/21 05/16/21 05/16/21 18:59 06:59 18:59 Weight 87.4 kg Other: Voiding Method Toilet Toilet # Voids 2 1 2 - Labs CBC & Chem 7: 05/16/21 06:06 05/16/21 06:06 Labs: Abnormal Lab Results - Last 24 Hours (Table) 05/15/21 05/15/21 05/15/21 Range/Units 12:46 17:06 20:08 Creatinine (0.52-1.04) mg/dL Glucose (74-99) mg/dL POC Glucose (mg/dL) 135 H 123 H 240 H (75-99) mg/dL AST (14-36) U/L ALT (4-34) U/L Total Protein (6.3-8.2) g/dL 05/15/21 05/16/21 05/16/21 Range/Units 20:19 06:06 06:29 Creatinine 0.51 L (0.52-1.04) mg/dL Glucose 183 H (74-99) mg/dL POC Glucose (mg/dL) 308 H 186 H (75-99) mg/dL AST 65 H (14-36) U/L ALT 62 H (4-34) U/L Total Protein 6.2 L (6.3-8.2) g/dL 05/16/21 Range/Units 12:05 Creatinine (0.52-1.04) mg/dL Glucose (74-99) mg/dL POC Glucose (mg/dL) 141 H (75-99) mg/dL AST (14-36) U/L ALT (4-34) U/L Total Protein (6.3-8.2) g/dL Assessment and Plan (1) Right upper quadrant abdominal pain Current Visit: Yes Status: Acute Code(s): R10.11 - RIGHT UPPER QUADRANT PAIN SNOMED Code(s): 312357320
[2021-05-16 13:53] LABS: Hemoglobin A1C 11.1 % (4.0-6.0)
[2021-05-16 14:16] VITALS: BP 121/77; PULSE 91; TEMP 98.1
== END 2021-05-16 15:14 | disposition left against medical advice (07) ==
LOC: EC 05:34 → 6PED 08:22
PROVIDERS: ADMIT Hospitalist; ATTEND Hospitalist
DX: R10.11 Right upper quadrant pain (principal); R10.13 Epigastric pain; R11.2 Nausea with vomiting, unspecified; E78.5 Hyperlipidemia, unspecified; N20.0 Calculus of kidney; E11.65 Type 2 diabetes mellitus with hyperglycemia; N28.81 Hypertrophy of kidney; K76.0 Fatty (change of) liver, not elsewhere classified; F17.200 Nicotine dependence, unspecified, uncomplicated; E66.9 Obesity, unspecified; Z68.30 Body mass index [BMI] 30.0-30.9, adult; Z87.442 Personal history of urinary calculi; Z79.4 Long term (current) use of insulin; Z79.899 Other long term (current) drug therapy; Z83.3 Family history of diabetes mellitus; Z83.438 Family history of other disorder of lipoprotein metabolism and other lipidemia
CPT/HCPCS: 96361 ×2; 96376 ×2; 96374; 96375; 99285; 36415; 80053 ×2; 82150; 83690; 85025 ×2; 81001; 83036; 76705; 74176; 78227; G0378 ×2; A9537; J2270; J2405; J2805; J1885 ×2